=== PATIENT | female | born 1955 | race Caucasian/White ===

== ENCOUNTER 2018-03-25 18:13 | Emergency (ER) | payer OTHER ==
[~2018-03-25] VITALS: Wt 119.1 kg
[~2018-03-25 18:13] MED LIST: BACL10TA PO; BENA5TAB33 PO; BUPR150T6 PO; FURO20TA3 PO; GABA300C16 PO; METF-480 PO; NITR0.4T39 SL
[2018-03-25] MEDS ORDERED: SOD CHLORIDE 0.9% 1,000 ML IV STA (20:18)
[2018-03-25] MEDS ORDERED: ONDANSETRON 4 MG INJ IV STA (20:18)
[2018-03-25] MEDS ORDERED: morphine 4 MG/ML VIAL IV STA ×2 (20:18→23:10)
[2018-03-25] MEDS ORDERED: TRAZ-150 PO (20:58)
[2018-03-25] MEDS ORDERED: BUPR300T4 PO (20:58)
[2018-03-25] MEDS ORDERED: BUPR150T6 PO (20:58)
[2018-03-25] MEDS ORDERED: METF850T13 PO (20:59)
[2018-03-25] MEDS ORDERED: ASPI-817 PO (20:59)
[2018-03-25] MEDS ORDERED: NITR0.4T32 SL (20:59)
[2018-03-25] MEDS ORDERED: LORA1TAB PO (21:00)
--- NOTE | 2018-03-25 23:35 | ERD ---
ER Documentation Chief Complaint Chief Complaint CP X'S 2 HOURS, DYSURIA/ FREQUENCY X'S 2 DAYS HPI This is a 62-year-old female who presents to the emergency room complaining of right-sided abdominal pain. The patient describes several days of sharp severe right-sided abdominal pain that is non-colicky and nonradiating. She denies any fevers or chills nausea vomiting or constipation. She additionally notes a history of bradycardia warranting a pacemaker. She occasionally gets chest discomfort. This is a subacute and chronic issue. She had similar symptoms yesterday but denies any active or exertional chest pain. ROS All systems reviewed and are negative except as per history of present illness. Medications Home Meds Reported Medications Lorazepam* (Lorazepam*) 1 Mg Tablet, 1 MG PO BID PRN for ANXIETY, #30 TAB 03/25/18 Nitroglycerin* (Nitroglycerin* SL) 0.4 Mg Tab.subl, 0.4 MG SL Q5MIN PRN for CHEST PAIN, BOTTLE 03/25/18 Aspirin* (Aspirin* EC) 81 Mg Tablet.dr, 81 MG PO DAILY, TAB 03/25/18 Metformin Hcl* (Metformin Hcl*) 850 Mg Tablet, 850 MG PO WITH BREAKFAST DINNE, #60 TAB 03/25/18 Bupropion Hcl* (Bupropion XL*) 300 Mg Tab.sr.24h, 300 MG PO QAM, TAB.SA 03/25/18 Bupropion Hcl* (Bupropion XL*) 150 Mg Tab.er.24h, 150 MG PO QPM, TAB.SA 03/25/18 Trazodone Hcl* (Desyrel*) 100 Mg Tab, 100 MG PO QHS, #30 TAB 03/25/18 Discontinued Reported Medications Baclofen* (Baclofen*) 10 Mg Tablet, 10 MG PO TID, TAB 09/21/15 Metformin* (Glucophage*) 850 Mg Tablet, 850 MG PO WITH BREAKFAST DINNE, #30 TAB 09/21/15 Bupropion Hcl* (Bupropion XL*) 150 Mg Tab.er.24h, 150 MG PO QAM, TAB.SA 09/21/15 Furosemide* (Furosemide*) 20 Mg Tablet, 20 MG PO DAILY, #60 TAB 09/21/15 Gabapentin* (Gabapentin*) 300 Mg Capsule, 300 MG PO TID, #90 CAP 09/21/15 Nitroglycerin* (Nitrostat*) 0.4 Mg Tab.subl, 0.4 MG SL Q5MIN PRN for CHEST PAIN, BOTTLE 09/21/15 Benazepril Hcl* (Benazepril Hcl*) 5 Mg Tablet, 5 MG PO DAILY, #30 TAB 09/21/15 Allergies Allergies: Coded Allergies: No Known Allergy (Unverified , 03/25/18) PMhx/Soc History of Surgery: Yes (cardiac stents) Anesthesia Reaction: Yes (Nauseous, SOB (1973)) Hx Neurological Disorder: No Hx Respiratory Disorders: No Hx Cardiac Disorders: Yes (pacemaker) Hx Psychiatric Problems: No Hx Miscellaneous Medical Probl: Yes (diabetic) Hx Alcohol Use: No Hx Substance Use: No Hx Tobacco Use: No Smoking Status: Never smoker FmHx Family History: No diabetes Physical Exam Vitals Vital Signs Date Temp Pulse Resp B/P (MAP) Pulse Ox O2 O2 Flow FiO2 Time Delivery Rate 03/25/18 68 22 153/71 100 Room Air 23:27 (98) 03/25/18 68 22 139/ 98 Room Air 22:00 03/25/18 71 22 139/71 100 Room Air 21:17 (93) 03/25/18 98.1 82 20 124/73 98 18:29 (90) Physical Exam General: Well developed, well nourished, no acute distress Head: Normocephalic, atraumatic. Eyes: Pupils equally reactive, EOM intact ENT: Moist mucous membranes Neck: Supple, no lymphadenopathy Respiratory: Lungs clear bilaterally, no distress Cardiovascular: RRR, no murmurs, rubs, or gallops Abdominal: Soft, mild right-sided abdominal tenderness : Deferred MSK: No edema, no unilateral swelling, 5/5 strength Neurologic: Alert and oriented, moving all extremities, normal speech, no focal weakness, no cerebellar signs Skin: No rash Psych: Normal mood Result Diagram: 03/25/18203403/25/182034 Results 24 hrs Laboratory Tests Test 03/25/18 20:35 03/25/18 22:00 White Blood Count 7.1 10^3/ul Red Blood Count 4.64 10^6/ul Hemoglobin 14.3 g/dl Hematocrit 43.3 % Mean Corpuscular Volume 93.3 fl Mean Corpuscular Hemoglobin 30.8 pg Mean Corpuscular Hemoglobin Concent 33.0 g/dl Red Cell Distribution Width 12.2 % Platelet Count 217 10^3/UL Mean Platelet Volume 10.2 fl Immature Granulocytes % 0.400 % Neutrophils % 47.4 % Lymphocytes % 42.6 % Monocytes % 7.9 % Eosinophils % 1.0 % Basophils % 0.7 % Nucleated Red Blood Cells % 0.0 /100WBC Immature Granulocytes # 0.030 10^3/ul Neutrophils # 3.4 10^3/ul Lymphocytes # 3.0 10^3/ul Monocytes # 0.6 10^3/ul Eosinophils # 0.1 10^3/ul Basophils # 0.1 10^3/ul Nucleated Red Blood Cells # 0.0 10^3/ul Sodium Level 140 mmol/L Potassium Level 4.6 mmol/L Chloride Level 105 mmol/L Carbon Dioxide Level 23 mmol/L Anion Gap 12 Blood Urea Nitrogen 21 mg/dl Creatinine 0.54 mg/dl Est Glomerular Filtrat Rate mL/min > 60 mL/min Glucose Level 170 mg/dl Calcium Level 9.5 mg/dl Total Bilirubin 0.4 mg/dl Direct Bilirubin 0.00 mg/dl Indirect Bilirubin 0.4 mg/dl Aspartate Amino Transf (AST/SGOT) 26 IU/L Alanine Aminotransferase (ALT/SGPT) 25 IU/L Alkaline Phosphatase 76 IU/L Troponin I < 0.012 ng/ml Total Protein 6.9 g/dl Albumin 4.0 g/dl Globulin 2.90 g/dl Albumin/Globulin Ratio 1.37 Lipase 29 U/L Urine Color STRAW Urine Clarity CLEAR Urine pH 5.0 Urine Specific [place] 1.005 Urine Ketones NEGATIVE mg/dL Urine Nitrite NEGATIVE mg/dL Urine Bilirubin NEGATIVE mg/dL Urine Urobilinogen NEGATIVE mg/dL Urine Leukocyte Esterase NEGATIVE Stefania/ul Urine Microscopic RBC 0 /HPF Urine Microscopic WBC 0 /HPF Urine Bacteria FEW /HPF Urine Hemoglobin 1+ mg/dL Urine Glucose NEGATIVE mg/dL Urine Total Protein NEGATIVE mg/dl Current Medications Medications Dose Sig/Gianni Start Time Status Last (Trade) Ordered Route PRN Stop Time Admin Dose Reason Admin Sodium 1,000 ml @ Q1H STAT 03/25/18 DC 03/25/18 Chloride 1,000 mls/hr IV 20:18 21:22 03/25/18 21:17 Morphine 4 mg ONCE STAT 03/25/18 DC 03/25/18 Sulfate IV 20:18 21:21 (morphine) 03/25/18 20:20 Ondansetron 4 mg ONCE STAT 03/25/18 DC 03/25/18 HCl (Zofran IV 20:18 21:21 Inj) 03/25/18 20:20 Morphine 4 mg ONCE STAT 03/25/18 DC 03/25/18 Sulfate IV 23:10 23:28 (morphine) 03/25/18 23:16 Procedures/MDM EKG, MONITORS, & DIAGNOSTIC IMAGING: EKG: I reviewed and interpreted a 12-lead EKG. Rhythm: Normal sinus rhythm ST Changes: No contiguous ST segment elevations T waves: No contiguous T wave inversions Impression: [No evidence of acute cardiac ischemia] CXR IMPRESSION: 1. The pacemaker and dual leads are stable in positioning and the cardiovascular silhouette is unremarkable except for persistent atherosclerotic changes involving the aorta. 2. The lung maldonado and pleural spaces remain clear. CT a/p IMPRESSION: 1. No evidence of acute intra-abdominal/pelvic inflammatory process. No evidence of bowel obstruction. The appendix is within normal limits. Stool filled loops of large bowel suggestive of constipation. 2. Fatty liver. Status post cholecystectomy. 3. Atherosclerosis of the aorta. 4. Large 10.4 x 9.5 cm cystic adnexa overlying the fundus of the uterus and additional posterior 3.3 cm smaller cystic adnexa. Difficult to determine right or left location, as both cysts are midline. Given clinical age, cannot exclude the possibility of ovarian cystic neoplasm. 5. No evidence of free fluid or free air. No gross focal fluid collections. RPTAT: AAPP US pelvis: PENDING LAB INTERPRETATION: * CBC shows no evidence of infectious process. * Chemistry profile reveals no evidence of hepatobiliary obstruction or cardiac ischemia * Urinalysis negative MEDICAL DECISION MAKING: The patient presents with right-sided abdominal pain. Prior cholecystectomy. The patient's pain could be consistent with ureteral colic. Lower concern for appendicitis. CT imaging would be indicated. Limited exam given patient's body habitus. The patient's chest pain is nonspecific subacute and consistent with her baseline. However, EKG and troponin would be reasonable. The patient has subacute symptoms and no active chest pain. I do not believe this is consistent with acute coronary syndrome, pulmonary embolism or dissection. She does note that she frequently gets chest pain when she is stressed and anxious. This is consistent with that. ER COURSE: * The patient required pain control medication. * Her CT imaging shows evidence of adnexal mass. A pelvic ultrasound has been ordered. The patient states a known history of right-sided cyst or mass. She has not been able to follow-up with her [facility] but is planning on doing so. * Given that this is likely a subacute process I do not feel the patient absolutely requires inpatient hospitalization. The patient is pending formal ultrasound imaging. If no evidence of metastatic disease or ovarian torsion the patient can be safely discharged with [facility] follow-up. * Patient is pending ultrasound imaging at this time to be followed by oncoming physician and anticipate discharge. Pain is well controlled at this point. CONSULTATION: [None] DISPOSITION PLAN: Pending ultrasound but anticipate discharge The patient does not have an identifiable emergent medical condition that warrants inpatient hospitalization at this time. The patient is deemed safe for discharge with outpatient follow-up. We discussed follow up with the patient's primary care doctor within 24 to 48 hours as needed. We also discussed return to the emergency room for worsening symptoms or worsening condition. Outpatient referral: [facility] Discharge Medications: Motrin Departure Diagnosis: Primary Impression: Right sided abdominal pain Additional Impression: Ovarian mass, right Condition: Stable SHANIQUA PAYNE MD Mar 25, 2018 23:35
[2018-03-25] MEDS ORDERED: IBUP800T48 PO (23:54)
--- NOTE | 2018-03-26 02:03 | EN ---
Date/Time of Note Date/Time of Note DATE: 03/26/18 TIME: 02:01 ER Progress Note [place] [address] Radiology Main Line: [phone] DIAGNOSTIC IMAGING REPORT Patient: GERSON CUELLAR : 1955 Age: 62 Sex: F MR #: [id number] DOS: 03/25/18 2212 Ordering MD: SHANIQUA CORTÉS MD Location: E/R Room/Bed: PROCEDURE: Pelvic ultrasound. CLINICAL INDICATION: Pelvic pain. TECHNIQUE: Multiple sonographic images of the pelvis were obtained utilizing a transabdominal and endovaginal technique. The images were reviewed on a PACS workstation. COMPARISON: None. FINDINGS: The uterus is visualized and measures 5.0 x 3.0 x 3.6 cm. No abnormal uterine mass is identified. The endometrial echo complex is homogeneous and measures 9.5 mm. There is no evidence for free fluid. The right ovary has a normal echotexture and measures 13.6 x 8.1 x 10.9 cm. The left ovary has a normal echotexture and measures 4.0 x 3.1 x 3.9 cm. There is normal flow to both ovaries. There is a hypoechoic cyst within the right ovary measuring 11.6 x 6.9 x 9.6 cm. There is a hypoechoic cyst within the left ovary measuring 2.8 x 2.2 x 3.0 cm. No adnexal masses are identified. IMPRESSION: Right ovarian 11.6 cm cyst. Left ovarian 3.0 cm cyst. .Primitivo Marquez MD, MD Date Time Electronically viewed and signed by .Primitivo Marquez MD, on 03/26/2018 00:50 .T/ CC: SHANIQUA CORTÉS MD [id number] I was asked by Dr. Cortés to review the pelvic ultrasound. It shows bilateral ovarian cysts, I discussed the findings with the patient and advised her to follow-up with her [employer] LIZETH WATSON MD Mar 26, 2018 02:03
[2018-03-26 02:41] VITALS: BP 128/69; PULSE 68; RESP 20
[2018-04-20] MEDS ORDERED: HYDR-4011 PO (21:37)
[2018-04-20] MEDS ORDERED: DOCU-144 PO (21:37)
== END 2018-03-26 02:42 | disposition home or self-care (01) ==
LOC: E/R 18:13
DX: N83.201 Unspecified ovarian cyst, right side (principal); E11.9 Type 2 diabetes mellitus without complications; Z95.0 Presence of cardiac pacemaker; Z79.82 Long term (current) use of aspirin; Z79.84 Long term (current) use of oral hypoglycemic drugs; Z98.61 Coronary angioplasty status
CPT/HCPCS: 36415; 71045; 74176; 76830; 76856; 80053; 81001; 83690; 84484; 85025; 93005; 96374; 96375; 96376; J2270; J2405; J7030; Z7502